=== PATIENT | female | born 1975 | race Caucasian/White ===

== ENCOUNTER → 2018-07-09 | Outpatient (CLI) | payer BC ==
--- NOTE | 2018-07-14 14:05 | MM ---
Reason for exam: screening (asymptomatic). Last mammogram was performed 5 years and 5 months ago. History: Patient had first child at age 30. Took hormonal contraceptives for 4 years. MG 3D Screening Mammo W/Cad Bilateral CC and MLO view(s) were taken. Technologist: RT Jabari (R)(M) Prior study comparison: February 19, 2013, [facility] DIGITAL LEFT BREAST MAMMOGRAM w/CAD. February 17, 2013, bilateral digital screening mammo w/CAD. The breast tissue is heterogeneously dense. This may lower the sensitivity of mammography. Finding: There is a new right breast middle-posterior depth lower inner quadrant mass for which ultrasound will be performed. There is new 3 mm group of calcifications in the upper outer quadrant of the left breast at anterior middle depth, possibly associated with a bilobed mass. Magnification views will be performed. There is distortion on 3D MLO 30/65 in the superior right breast at posterior depth. spot compression MLO view will be performed and lateral view. There is a new post depth medial left breast asymmetry. ASSESSMENT: Incomplete: need additional imaging evaluation, BI-RAD 0 RECOMMENDATION: Special view mammogram and ultrasound of both breasts.
== END | disposition home or self-care (01) ==
LOC: RADMAMWWP 07:36
PROVIDERS: ATTEND Obstetrics & Gynecology
DX: Z12.31 Encounter for screening mammogram for malignant neoplasm of breast (principal)
CPT/HCPCS: 77063; 77067

== ENCOUNTER → 2018-07-15 | Outpatient (CLI) | payer BC ==
--- NOTE | 2018-07-16 09:45 | MM ---
Reason for exam: additional evaluation requested from abnormal screening. Last mammogram was performed less than 1 month ago. History: Patient had first child at age 30. Took hormonal contraceptives for 4 years. Physical Findings: Nurse did not find any significant physical abnormalities on exam. MG 3D Work Up W/Cad ARNIE Bilateral spot compression CC and spot compression MLO view(s) were taken. ML view(s) were taken of the right breast. LM view(s) were taken of the left breast. Prior study comparison: July 09, 2018, bilateral MG 3d screening mammo w/cad. February 19, 2013, [facility] DIGITAL LEFT BREAST MAMMOGRAM w/CAD. Finding: There is a 5 mm circumscribed mass in the inner, posterior position of the right breast, persistent on additional views. Persistent left 5mm posterior central lesion. ASSESSMENT: Incomplete: need additional imaging evaluation, BI-RAD 0 RECOMMENDATION: Ultrasound of both breasts.
--- NOTE | 2018-07-16 09:50 | USB ---
History: Patient had first child at age 30. Took hormonal contraceptives for 4 years. US Breast Workup Limited ARNIE Right limited breast ultrasound including focal area of concern, retroareolar and axilla demonstrates a 0.4 x 0.2 x 0.5 cm to small to characterize lesion at 4 o'clock. Left limited breast ultrasound including focal area of concern, retroareolar and axilla demonstrates a 0.3 x 0.2 x 0.3 cm to small to characterized lesion at 9 o'clock. These results were verbally communicated with the patient and result sheet given to the patient on 07/15/18. ASSESSMENT: Probably benign, BI-RAD 3 RECOMMENDATION: Follow-up diagnostic mammogram and ultrasound of both breasts in 6 months.
== END | disposition home or self-care (01) ==
LOC: RADMAMWWP 06:56
PROVIDERS: ATTEND Obstetrics & Gynecology
DX: R92.8 Other abnormal and inconclusive findings on diagnostic imaging of breast (principal)
CPT/HCPCS: 77062; 77066

== ENCOUNTER → 2019-01-18 | Outpatient (CLI) | payer BC ==
--- NOTE | 2019-01-18 11:34 | MM ---
Reason for exam: follow-up at short interval from prior study. Last mammogram was performed 6 months ago. History: Patient had first child at age 30. Took hormonal contraceptives for 4 years. Physical Findings: Nurse did not find any significant physical abnormalities on exam. MG 3D Diag Mammo W/Cad ARNIE Bilateral CC and MLO view(s) were taken. Prior study comparison: July 15, 2018, bilateral MG 3d work up w/cad ARNIE. July 09, 2018, bilateral MG 3d screening mammo w/cad. The breast tissue is heterogeneously dense. This may lower the sensitivity of mammography. Bilateral nodualrity redemonstrated. An additional short interval follow up recommended. These results were verbally communicated with the patient and result sheet given to the patient on 01/18/19. ASSESSMENT: Probably benign, BI-RAD 3 RECOMMENDATION: Follow-up diagnostic mammogram of both breasts in 6 months.
== END ==
LOC: RADMAMWWP 08:51
PROVIDERS: ATTEND Obstetrics & Gynecology
DX: R92.8 Other abnormal and inconclusive findings on diagnostic imaging of breast (principal)
CPT/HCPCS: 77062; 77066

== ENCOUNTER → 2019-07-19 | Outpatient (CLI) | payer BC ==
--- NOTE | 2019-07-19 08:35 | MM ---
Reason for exam: follow-up at short interval from prior study. Last mammogram was performed 6 months ago. History: Patient had first child at age 30. Took hormonal contraceptives for 4 years. Physical Findings: Nurse did not find any significant physical abnormalities on exam. MG 3D Diag Mammo W/Cad ARNIE Bilateral CC and MLO view(s) were taken. Prior study comparison: January 18, 2019, bilateral MG 3d diag mammo w/cad ARNIE. July 15, 2018, bilateral MG 3d work up w/cad ARNIE. The breast tissue is heterogeneously dense. This may lower the sensitivity of mammography. Bilateral asymmetric densities show no progression after a year. Some areas are less defined. A couple punctate calcification left upper outer quadrant are also stable. These results were verbally communicated with the patient and result sheet given to the patient on 07/19/19. ASSESSMENT: Benign, BI-RAD 2 RECOMMENDATION: Routine screening mammogram of both breasts in 1 year.
== END | disposition home or self-care (01) ==
LOC: RADMAMWWP 07:32
PROVIDERS: ATTEND Obstetrics & Gynecology
DX: R92.8 Other abnormal and inconclusive findings on diagnostic imaging of breast (principal)
CPT/HCPCS: 77062; 77066

== ENCOUNTER → 2025-05-23 | Outpatient (CLI) | payer BC ==
--- NOTE | 2025-05-23 11:10 | MM ---
Reason for Exam: Screening (asymptomatic). Last mammogram was performed 5 year(s) and 10 month(s) ago. Patient History: Menarche at age 16. First Full-Term at age 30. Late child-bearing (after 29). Right ovary removed at age 23. Patient used Hormonal Contraceptives for 4 years. Risk Values: Lucille 5 year model risk: 1.2%. NCI Lifetime model risk: 11.1%. Prior Study Comparison: 07/15/2018 Bilateral Diagnostic Mammogram, [facility]. 01/18/2019 Bilateral Diagnostic Mammogram, [facility]. 07/19/2019 Bilateral Diagnostic Mammogram, [facility]. Tissue Density: There are scattered areas of fibroglandular density. Findings: Analyzed By CAD. Right breast: There is no suspicious group of microcalcifications or new suspicious mass. Left breast: There is no suspicious group of microcalcifications or new suspicious mass. Overall Assessment: Negative, BI-RAD 1 Management: Screening Mammogram of both breasts in [address] [facility] will attempt to contact patient to return for supplemental views and ultrasound if indicated. Patient should continue monthly self-breast exams. A clinical breast exam by your physician is recommended on an annual basis. This exam should not preclude additional follow-up of suspicious palpable abnormalities. Note on Lucille scores and lifetime risk: 1. A Lucille score greater than 3% is considered moderate risk. If this is the case, consider specialist referral to assess eligibility for a risk reducing agent. 2. If overall lifetime risk for the development of breast cancer is 20% or higher, the patient may qualify for future screening with alternating mammogram and breast MRI. [facility], , 05/23/2025 7:24 AM. Electronically signed and approved by: Bulmaro Frias DO
== END | disposition home or self-care (01) ==
LOC: RADMAMWWP 07:08
PROVIDERS: ATTEND Obstetrics & Gynecology
DX: Z12.31 Encounter for screening mammogram for malignant neoplasm of breast (principal); R92.323 Mammographic fibroglandular density, bilateral breasts; Z92.0 Personal history of contraception
CPT/HCPCS: 77063; 77067